=== PATIENT | female | born 1935 | race Caucasian/White ===

== ENCOUNTER 2016-05-24 05:37 | Inpatient (IN) | payer OTHER ==
[2016-05-15 15:13] LABS: BASOPHILS 0.2 %; BASOPHILS ABSOLUTE 0.02 10/3/uL (0.0-0.16); EOSINOPHILS 1.6 %; EOSINOPHILS ABSOLUTE 0.17 10/3/uL (0.0-0.53); IMMATURE GRANULOCYTES 0.2 %; IMMATURE GRANULOCYTES ABSOLUTE 0.02 10/3/uL (0.0-0.11); LYMPHOCYTES 16.9 %; LYMPHOCYTES ABSOLUTE 1.76 10/3/uL (0.67-4.30); MEAN CORPUSCULAR HEMOGLOB 30.1 pg (26.0-34.0); MEAN CORPUSCULAR VOLUME 92.5 fL (80-100); MEAN PLATELET VOLUME 10.3 fL (9.2-13.0); MONOCYTES 10.2 %; MONOCYTES ABSOLUTE 1.06 10/3/uL (0.21-1.20); NEUTROPHILS 70.9 %; NEUTROPHILS ABSOLUTE 7.38 10/3/uL (2.02-8.40); PLATELET COUNT 273 10/3/uL (150-400); RED CELL COUNT 4.65 10/6/uL (4.0-5.6); WHITE BLOOD CELLS 10.4 10/3/uL (4.5-10.5)
[2016-05-15 15:25] LABS: BUN (BLOOD UREA NITROGEN) 13 MG/DL (6-23); CALCIUM, SERUM 9.3 MG/DL (8.5-10.4); CHLORIDE, SERUM 104 MMOL/L (96-112); CO2 (CARBON DIOXIDE) 29 MMOL/L (24-34); GFR AFRICAN AMERICAN 82 ML/MIN (>=60); GFR NON AFRICAN AMERICAN 71 ML/MIN (>=60); GLUCOSE, SERUM 86 MG/DL (60-99); POTASSIUM, SERUM 3.8 MMOL/L (3.5-5.3); SODIUM, SERUM 142 MMOL/L (135-148)
[2016-05-15 15:29] LABS: MANUAL DIFF NO %; MEAN CORPUS HGB CONC 32.6 g/dL (32.0-36.0); RBC DISTRIBUTION WIDTH 18.2 % (12.0-16.0)
--- NOTE | ~2016-05-24 | OP ---
Record Of Operation [facility] [address] [place]. [address] NAME: DAISY SOSA : 39 STATUS : ADM IN PAT#: [id number] AGE: 80 ADM/REG DATE : 05/24/16 MR#: [id number] REPORT SERV DATE: 05/24/16 DICTATED BY: MAC IVY DATE: 05/24/16 REPORT STATUS : Draft TRANSCRIBED BY: MODL DATE: 05/24/16 DATE OF PROCEDURE: 05/24/2016 PREOPERATIVE DIAGNOSIS: Paraesophageal hernia. POSTOPERATIVE DIAGNOSIS: Paraesophageal hernia. OPERATION PERFORMED: 1. Laparoscopic paraesophageal hernia repair with Toupet fundoplication. 2. Strattice mesh placement. SURGEON: Mac Ivy M.D. ANESTHESIA: General. ESTIMATED BLOOD LOSS: Less than 10 mL. IV FLUIDS: Adequate. MOVEMENT ASSEMBLER: Paco Lowe M.D. 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 In addition, she has had significant issues with chest pain and early satiety. She is brought to the operating room today for repair. DESCRIPTION OF OPERATION: After appropriate sedation, the patient was prepped and draped in proper sterile fashion. Stomach was grasped and brought into the abdominal cavity. We incised the gastrohepatic attachments. We then were able to work away down to the right jose j of the diaphragm. We grasped the hernia sac. We brought this into the wound. We incised the hernia sac using the Harmonic scalpel. We visualize the right jose j of the diaphragm. We worked our way over to the left jose j of the diaphragm anteriorly. We were able to bring in the hernia sac as we did this. We then continued along, the stomach was then retracted to the right and the hernia sac attachments were taken down to the left jose j of the diaphragm. We then took down two to three short gastric vessels in the interim. We then mobilized the esophagus circumferentially in the mediastinum to give a significant length. Both anterior and posterior vagus nerves were visualized. We then brought the Yolette drain around the GE junction. The esophagus was then further mobilized. Any posterior attachments were taken down. There was a large amount of retroesophageal fat was also taken down. We then closed the diaphragmatic hiatus using 0 Ethibond sutures buttressed with Strattice mesh. This came around the esophagus nicely without constricting it. We had about 5 cm of esophagus below the GE junction. We then brought the fundus of the stomach posteriorly. It was sutured to the esophagus and then into the right jose j of the diaphragm using 2-0 Ethibond suture. We then brought the anterior portion of the stomach and sutured it to the esophagus and this was also attached to the diaphragm on the left side. This gave us a good relatively loose wrap. Once again, the esophagus came down Record Of Operation [facility] [id number] [place]. [address] NAME: DAISY SOSA : 39 STATUS : ADM IN [facility]#: [id number] AGE: 80 ADM/REG DATE : 05/24/16 MR#: [id number] REPORT SERV DATE: 05/24/16 DICTATED BY: MAC IVY DATE: 05/24/16 REPORT STATUS : Draft TRANSCRIBED BY: MODL DATE: 05/24/16 nicely. Hiatus was closed well. We then took down our snake retractor. All trocars were removed under direct visualization. There was no significant injury on the abdominal wall. The abdomen was then desufflated. Skin was closed using interrupted 3-0 Vicryl sutures. Steri-Strips and dressings were then placed. The patient was taken to the recovery room in satisfactory condition. YANIV/MELANIA Mac Ivy M.D. / [id number] CC: Mac Ivy M.D.
[~2016-05-24 05:37] MED LIST: ACET500CAP PO; AQUASOL E50 UNT/ML PO; ASAB PO; BENTYL10 PO; CALTRA600D PO; COREG12 PO; COZ50 PO; CYMBALTA30 PO; FISH-EPA1000 MG PO; GAS-X80 MG PO; MELA3 PO; METHOC750B PO; PRAVACHOL40 MG PO; PRILO PO; PRILOSEC40 MG PO; PROBIOTIC PO; SPIRO25 PO; SUCR PO; SUPER B COMP PO; TOPXL50 PO; VITAMIN D31000 UNIT PO; VITAMIN D400 UNI1 PO; X5 PO; [UNRECOGNIZED DRUG - OTHER] OR
[2016-05-25] MEDS ORDERED: PCET PO (08:52)
== END 2016-05-25 12:14 | disposition home or self-care (01) | DRG 328 ==
LOC: SDC/OF 05:37 → PACU 10:49 → 5SO 14:10
PROVIDERS: Specialist
PROC: 0BUS4JZ (ICD-10-PCS; principal; 2016-05-24 07:45)
DX: K44.9 Diaphragmatic hernia without obstruction or gangrene (principal); E66.9 Obesity, unspecified; I10 Essential (primary) hypertension; Z88.2 Allergy status to sulfonamides; Z79.899 Other long term (current) drug therapy; Z68.36 Body mass index [BMI] 36.0-36.9, adult
CPT/HCPCS: 80048; 85025; 93005; A9270-GY; J0690; J2250; J2270; J2370; J2405; J2710; J3010; Q4130